=== PATIENT | male | born 1960 | race Caucasian/White ===

== ENCOUNTER → 2024-01-03 15:08 | Outpatient (REF) | payer OTHER, SELFPAY | LOC: HWRAD 15:08 | PROVIDERS: ATTENDING PHYSICIAN Transplant Surgery; FAMILY PHYSICIAN Nurse Practitioner | DX: Z94.4 Liver transplant status (principal) | CPT/HCPCS: 74176 ==

== ENCOUNTER → 2024-06-09 17:41 | Outpatient (REF) | payer OTHER, SELFPAY | LOC: MRI 17:41 | PROVIDERS: ATTENDING PHYSICIAN Transplant Surgery; FAMILY PHYSICIAN Nurse Practitioner | DX: Z94.4 Liver transplant status (principal) | CPT/HCPCS: 74183; A9581 ==

== ENCOUNTER 2024-07-13 12:30 | Emergency (ER) | payer OTHER, SELFPAY ==
[2024-07-13 12:32] VITALS: BP 162/74
--- NOTE | 2024-07-13 12:37 | ED.GENMED ---
ED Provider Triage
<Ralf Phillip PA-C - Last Filed: 07/13/24 12:43>
-
Patient seen by provider in Triage?: Seen in Triage
63-year-old male presents complaining severe low back pain that radiates into the bilateral upper buttocks. This started yesterday after lifting a heavy toolbox. He is ambulatory. He denies any bowel or bladder dysfunction. He had a liver
transplant several months ago. He was seen by the family doctor and sent here for further evaluation.
Patient is able to walk. X-rays of lumbar spine pending.
History of Present Illness
<Ralf Phillip PA-C - Last Filed: 07/13/24 12:43>
General
Chief Complaint: Back Pain
Time Seen by Provider: 07/13/24 14:42
<Angelica Navarro PA-C - Last Filed: 07/13/24 19:41>
General
Source: patient and spouse
Exam Limitations: none
Nursing documentation reviewed up to this point in time: agreed with
History of Present Illness
History of Present Illness:
63-year-old male presenting to the emergency department for evaluation of lower back pain radiating into his buttocks. Patient states he was lifting something heavy yesterday afternoon when he heard a 'clap.' Pain located in lower back worse with
movement. Patient endorses a numbness sensation in his buttocks and a weakness in his lower legs that has been progressing since incident yesterday. Patient denies any fevers, chills, scrotal/perianal anesthesia, bladder/bowel incontinence,
numbness/tingling in lower extremities. Patient has been ambulating.
Patient was seen by his primary care provider today and given subjective weakness and numbness in his buttocks was sent to the emergency department to rule out cauda equina.
Patient does report past history of back injury greater than 30 years prior.
Patient did have liver transplant in January 2024.
Past History
<Ralf Phillip PA-C - Last Filed: 07/13/24 12:43>
Past History
ED Past Medical History: None
ED Past Surgical History: None
Patient has exhibited threatening behavior?: No
PSI?: No
Review of Systems
<Angelica Navarro PA-C - Last Filed: 07/13/24 19:41>
Review of Systems
Allergies reviewed?: Yes
All Other Systems: ROS reviewed and negative except as documented in HPI and ROS
Phy Exam
<Angelica Navarro PA-C - Last Filed: 07/13/24 19:41>
Physical Exam
Physical Exam:
Vitals: Hypertensive, otherwise vital signs stable. Afebrile
General: Patient is well appearing, no acute distress
Skin: Warm and dry, no rashes or lesions
Head: Normocephalic, atraumatic
Eyes: Sclera nonicteric. EOMs intact. No nystagmus.
Throat: Protecting airway
Neck: Normal ROM, no cervical spine tenderness, no meningismus
Cardiac: Regular rate and rhythm, no murmurs.
Pulm: Normal respiratory effort, no wheezes, rales, rhonchi heard on exam.
Abdomen: No abdominal tenderness.
Back: Reproducible midline spinal tenderness near L2/L3 level. No overlying erythema, rash, ecchymoses. No CVA tenderness. Negative straight leg raise bilaterally.
Extremities: No evidence of cyanosis or edema. Great distal pulses in bilateral upper and lower extremities.
Neuro: AAOx3. CN II-XII intact. Objective strength 5 out of 5 in upper and lower extremities. Excellent sensation in bilateral lower extremities
Psychiatric: Normal affect.
Course
<Ralf Phillip PA-C - Last Filed: 07/13/24 12:43>
Orders/Labs/Results
Orders:
Orders
07/13/24 12:34
Lumbar Spine Complete, 4 View [CR Lumbar Spine Comp Min 4 Vw*] Urgent
Comment:
Reason For Exam: pain
07/13/24 15:35
Acetaminophen [Tylenol] 650 mg PO NOW STA
Lidocaine [Lidocaine 4% Patch] 1 patch TOPICAL NOW STA
Apply Lidocaine patch(s) to:: lower back
07/13/24 15:40
MR Lumbar Without Contrast Urgent
Comment:
Reason For Exam: Consider cauda equina
Recent pill cam endoscopy?: No
07/13/24 18:53
Lidocaine [Lidocaine 4% Patch] 1 patch TOPICAL NOW STA
Apply Lidocaine patch(s) to:: Lower back
Oxycodone [Roxicodone] 5 mg PO NOW STA
Vital Signs
Initial and Last Documented VS:
Initial Vital Signs
Temp Pulse Resp BP Pulse Ox
98.8 F 80 18 162/74 100
07/13/24 12:32 07/13/24 12:32 07/13/24 12:32 07/13/24 12:32 07/13/24 12:32
Last Documented Vital Signs
Temp Pulse Resp BP Pulse Ox
98.8 F 68 17 116/72 100
07/13/24 12:32 07/13/24 16:45 07/13/24 16:45 07/13/24 16:00 07/13/24 16:45
<Angelica Navarro PA-C - Last Filed: 07/13/24 19:41>
Orders/Labs/Results
Orders:
Orders
07/13/24 12:34
Lumbar Spine Complete, 4 View [CR Lumbar Spine Comp Min 4 Vw*] Urgent
Comment:
Reason For Exam: pain
07/13/24 15:35
Acetaminophen [Tylenol] 650 mg PO NOW STA
Lidocaine [Lidocaine 4% Patch] 1 patch TOPICAL NOW STA
Apply Lidocaine patch(s) to:: lower back
07/13/24 15:40
MR Lumbar Without Contrast Urgent
Comment:
Reason For Exam: Consider cauda equina
Recent pill cam endoscopy?: No
07/13/24 18:53
Lidocaine [Lidocaine 4% Patch] 1 patch TOPICAL NOW STA
Apply Lidocaine patch(s) to:: Lower back
Oxycodone [Roxicodone] 5 mg PO NOW STA
Vital Signs
Initial and Last Documented VS:
Initial Vital Signs
Temp Pulse Resp BP Pulse Ox
98.8 F 80 18 162/74 100
07/13/24 12:32 07/13/24 12:32 07/13/24 12:32 07/13/24 12:32 07/13/24 12:32
Last Documented Vital Signs
Temp Pulse Resp BP Pulse Ox
98.8 F 68 17 116/72 100
07/13/24 12:32 07/13/24 16:45 07/13/24 16:45 07/13/24 16:00 07/13/24 16:45
<Mindy Messina MD - Last Filed: 07/13/24 15:23>
Orders/Labs/Results
Orders:
Orders
07/13/24 12:34
Lumbar Spine Complete, 4 View [CR Lumbar Spine Comp Min 4 Vw*] Urgent
Comment:
Reason For Exam: pain
07/13/24 15:35
Acetaminophen [Tylenol] 650 mg PO NOW STA
Lidocaine [Lidocaine 4% Patch] 1 patch TOPICAL NOW STA
Apply Lidocaine patch(s) to:: lower back
07/13/24 15:40
MR Lumbar Without Contrast Urgent
Comment:
Reason For Exam: Consider cauda equina
Recent pill cam endoscopy?: No
07/13/24 18:53
Lidocaine [Lidocaine 4% Patch] 1 patch TOPICAL NOW STA
Apply Lidocaine patch(s) to:: Lower back
Oxycodone [Roxicodone] 5 mg PO NOW STA
Vital Signs
Initial and Last Documented VS:
Initial Vital Signs
Temp Pulse Resp BP Pulse Ox
98.8 F 80 18 162/74 100
07/13/24 12:32 07/13/24 12:32 07/13/24 12:32 07/13/24 12:32 07/13/24 12:32
Last Documented Vital Signs
Temp Pulse Resp BP Pulse Ox
98.8 F 68 17 116/72 100
07/13/24 12:32 07/13/24 16:45 07/13/24 16:45 07/13/24 16:00 07/13/24 16:45
<Angelica Navarro PA-C - Last Filed: 07/13/24 19:41>
MDM/Problems Addressed
Differential Diagnosis Includes:
Not limited to: Muscle strain, muscle spasm, spinal stenosis, herniated disc, cauda equina, fracture, etc.
MDM/Problems Addressed:
62-year-old male presenting with acute onset low back pain after lifting heavy object yesterday. Subjective weakness and numbness of buttocks�seen by PCP and referred to ER to rule out cauda equina. Patient has perianal or scrotal anesthesia. No
bowel/bladder incontinence. No numbness/tingling lower legs vital stable. Exam as above. Patient in mild distress due to pain, otherwise well appearing. Patient with point tenderness to lower lumbar spine. No focal neurologic deficits noted
patient has excellent sensation in lower extremities. On exam�patient does have 5 out of 5 strength in upper and lower extremities. A lumbar spine x-ray was obtained in triage shows no acute abnormalities. Low suspicion for cauda equina although
given history of lower extremity weakness and buttock numbness�will obtain MRI to rule out. Patient with liver transplant . Did speak with transfer and pumphouse operator chief who recommended Tylenol for pain management as long as less than 2 g/day.
Patient given Tylenol, lidocaine patch. MRI pending.
Update: Patient does report mild improvement following Tylenol, lidocaine. MRI report pending.
Update: MRI report reviewed. No evidence of spinal cord compression. There is an acute L2 inferior endplate fracture. Discussed with neurosurgeon, Dr. Dubose. Pain well-controlled in ER patient will be discharged with outpatient follow-up.
Return precautions discussed with patient. Patient comfortable discharge. patient seen with attending physician.
Chronic conditions affecting care:
N/A
Acute Exacerbation and/or Progression of Chronic Illness:
N/A
<Angelica Navarro PA-C - Last Filed: 07/13/24 19:41>
*Radiology
Radiology exam reviewed: preliminary read by ED provider and radiology read reviewed
*Pulse Oximetry
Patient hypoxic: no
*EKG
Interpreted by ED Provider?: NA
*Corporate Executive Chef Interpretation
Rate: Corporate Executive Chef- N/A
*Critical Care Note
Total Time (30-74mins, 75-104mins- exclusive of procedures): Not Applicable
<Angelica Navarro PA-C - Last Filed: 07/13/24 19:41>
Patient Management
Discussion with other providers: Transit Police Officer (Neurosurgery - Dr. Dubose)
ED Attending Note
<Ralf Phillip PA-C - Last Filed: 07/13/24 12:43>
-
Portions of this chart may have been created with voice recognition software.� Occasional wrong word or��sound alike� substitutions may have occurred due to the inherent limitations of voice recognition software.
<Mindy Messina MD - Last Filed: 07/13/24 15:23>
ED Attending Note
Patient seen and examined by attending physician: Yes
I performed the substantive portion of visit, reviewed & personally made and approve the management plan that is documented in note by myself or GARRETT.: Yes
ED Attending Note:
63-year-old male who says he was lifting up something very heavy yesterday and developed the abrupt onset of pain in the lower back that radiates down to his buttocks associated with numbness. This does not extend beyond his buttocks. He
subjectively feels like his legs are weak and shaky but he is still able to ambulate. He denies incontinence, retention, perianal/scrotal anesthesia, fever, chills, chest pain, shortness of breath, abdominal pain, or other complaints. Given
patient's complaint of numbness and weakness was referred to the emergency department to rule out cauda equina. On exam, patient is overall well-appearing, abdomen soft and nontender. Subjective motor strength intact, 2+ patellar reflexes. No
tenderness to palpation of midline of back.
Discharge Plan
Departure
Patient Disposition: Home (Routine Discharge)
Date of Disposition: 07/13/24
Time of Disposition: 18:45
Patient with high blood pressure during this ER visit?: No
Condition: Good
Covid-19: Not Applicable
Discharge Problem:
Fracture of L2 vertebra
Instructions: Low Back Pain (DC)
Prescriptions:
New
oxycodone 5 mg tablet
5 mg PO Q6H PRN (Reason: Pain) Qty: 10 0RF
No Action
ascorbic acid (vitamin C) [Vitamin C] 500 MG tablet
500 mg PO DAILY
B-complex with vitamin C 1 CAPLET tablet
1 cap PO DAILY
cholecalciferol (vitamin D3) 2,000 UNITS tablet
2,000 units PO DAILY
vitamin E (dl, acetate) 400 UNITS capsule
400 units PO DAILY
multivitamin with folic acid [Tab-A-Nichole] 1 TABLET tablet
1 tab PO DAILY
furosemide 20 MG tablet
20 mg PO DAILY 30 Days Qty: 30 3RF
spironolactone 50 MG tablet
50 mg PO DAILY 30 Days Qty: 30 3RF
Creon 36,000-114,000- 180,000 unit capsule,delayed release(DR/EC)
3 cap PO MEALS
Creon 36,000-114,000- 180,000 unit capsule,delayed release(DR/EC)
3 cap PO DAILY PRN (Reason: snack)
Referrals:
Thierry Dubose DO [Active] - Call in 1-3 days for appt
Amirah Bush CRNP [Family Provider] -
Stand Alone Forms: Return to Work
Activity Restrictions/Additional Instructions:
RETURN TO THE EMERGENCY DEPARTMENT WITH ANY NUMBNESS/TINGLING IN LOWER EXTREMITIES, WEAKNESS IN LOWER EXTREMITIES, BOWEL/BLADDER INCONTINENCE, INTRACTABLE PAIN, WORSENING IN CURRENT SYMPTOMS, OR ANY OTHER CONCERNS
-As discussed�your MRI showed a fracture of the inferior endplate of L2. You should take Tylenol at home as needed for pain. You should not exceed more than 2000 mg/day. You can apply lidocaine patches at home as needed. A prescription for
oxycodone has been sent to the pharmacy you can take for severe pain. This may cause drowsiness not take prior to driving. In addition�this may cause constipation you should take a stool softener/MiraLAX.
-Discussed with your donor relations coordinator�you should avoid medications which includes ibuprofen, Advil, Motrin, Aleve, naproxen, etc.
-Follow-up with Dr. Dubose for further evaluation/management. The contact information has been provided for you above.
Monitor your symptoms closely return to the emergency department with any/new symptoms
Interventions
Interventions:
*Risk Screen - Suicide Last Done: 07/13/24 12:32
*General Assessment Last Done: 07/13/24 12:32
*Neglect/Abuse Screening Last Done: 07/13/24 12:32
ED- Fall Risk Assessment Last Done: 07/13/24 13:50
*ED COVID-19 Vaccine History Last Done: 07/13/24 12:32
ED-Musculoskeletal Assessment Last Done: 07/13/24 13:49
Discharge Date and Time
Print Language: NEPALI
[2024-07-13 13:34] VITALS: BP 156/70
[2024-07-13 13:42] VITALS: BMI 28.2
[2024-07-13 14:00] VITALS: BP 139/63
--- NOTE | 2024-07-13 15:08 | EDRN ---
Dr. Ivy cleared pt as not risk of suicide and arranging outpt mental health care for pt per crisis. Crisis stated pt can go to their area to await the completion of her paperwork.
[2024-07-13 15:13] VITALS: BP 146/70
--- NOTE | 2024-07-13 15:20 | EDRN ---
Dr. Messina in room w/ pt at this time. Pt looking for number of physician at [facility] where he had liver transplant to find out what meds pt may take for his pain. Pt is now at 8/10 pain.
[2024-07-13] MEDS: LIDOCAINE 4% PATCH 1 PATCH TOPICAL ×2 (15:40→19:34)
[2024-07-13] MEDS: TYLENOL 650 MG PO (15:41)
--- NOTE | 2024-07-13 15:46 | EDRN ---
Pt awaiting MRI as ordered at this time. Pt will inform this RN if medication taken helps his pain.
[2024-07-13 16:00] VITALS: BP 116/72
[2024-07-13] MEDS: ROXICODONE 5 MG PO (19:34)
[2024-07-13 19:47] VITALS: BP 138/71
== END 2024-07-13 20:05 | disposition home or self-care (01) ==
LOC: EMR 12:30
PROVIDERS: EMERGENCY PHYSICIAN Emergency Medicine; FAMILY PHYSICIAN Nurse Practitioner
DX: S32.029A Unspecified fracture of second lumbar vertebra, initial encounter for closed fracture (principal); X50.0XXA Overexertion from strenuous movement or load, initial encounter
CPT/HCPCS: 99283; 72110; 72148

== ENCOUNTER → 2024-08-24 10:46 | Outpatient (REF) | payer OTHER, SELFPAY | LOC: HWRAD 10:46 | PROVIDERS: ATTENDING PHYSICIAN Nurse Practitioner Family | DX: S31.030A Puncture wound without foreign body of lower back and pelvis without penetration into retroperitoneum, initial encounter (principal) | CPT/HCPCS: 72100 ==

== ENCOUNTER → 2024-10-01 18:21 | Outpatient (REF) | payer OTHER, SELFPAY | LOC: MRI 3T 18:21 | PROVIDERS: ATTENDING PHYSICIAN Internal Medicine Gastroenterology; FAMILY PHYSICIAN Nurse Practitioner | DX: Z94.4 Liver transplant status (principal) | CPT/HCPCS: 74183; A9581 ==

== ENCOUNTER 2024-10-31 00:41 | Emergency (ER) | payer OTHER, SELFPAY ==
[2024-10-31] VITALS (7 sets, daily range): BP systolic 131–142; BP diastolic 69–79; BMI 28.9
[2024-10-31 01:43] LABS: Urine Albumin Negative (Neg - Trace); Urine Bilirubin Negative (Negative); Urine Character Clear (Clear); Urine Color Yellow; Urine Glucose Negative (Negative); Urine Ketone Negative (Negative); Urine Leukocyte Negative (Negative); Urine Nitrite Negative (Negative); Urine Occult Blood 1+ (Negative); Urine Specific Gravity 1.025 (<1.030); Urine Urobilinogen Negative (Neg - 1+)
[2024-10-31 01:46] LABS: % Basophils 0.4 % (0-2); % Eosinophils 1.2 % (0-6); % Immature Granulocytes 0.2 % (0-0.5); % Monocytes 8.7 % (1.7-9.3); % Neutrophils 75.5 % (42.2-75.2); Absolute Eosinophils 0.1 10^3/uL (0-0.7); Absolute Lymphocytes 0.7 10^3/uL (1.2-3.4); Absolute Monocytes 0.4 10^3/uL (0.1-0.6); Absolute Neutrophils 3.7 10^3/uL (1.4-6.5); Hemoglobin 11.2 g/dL (13.0-18.0); Mean Corp Hgb Conc. 32.9 g/dL (33.0-37.0); Mean Corpuscular Hgb 27.7 pg (27.0-31.0); Mean Corpuscular Volume 84.2 fL (80.0-94.0); Mean Platelet Volume 9.1 fL (7.4-10.4); Nucleated Red Blood Cells % 0 % (-); Platelet Count 96 10^3/uL (130-400); Red Blood Cell Count 4.04 10^6/uL (4.70-6.10); Red Cell Dist. Width 14.6 % (11.5-14.5); White Blood Cell Count 4.9 10^3/uL (4.8-10.8)
[2024-10-31 02:04] LABS: ALT (SGPT) 13 U/L (0-50); AST (SGOT) 19 U/L (17-59); Alkaline Phosphatase 134 U/L (38-126); Blood Urea Nitrogen 20 mg/dl (9-20); Calcium 8.3 mg/dl (8.4-10.2); Carbon Dioxide 22 mmol/L (22-30); Chloride 109 mmol/L (98-107); Estimated Creatinine Clearance 98 ml/min; Glucose 90 mg/dl (70-99); Lipase 68 U/L (23-300); Potassium 4.9 mmol/L (3.5-5.1); Sodium 140 mmol/L (135-145); Total Bilirubin 0.9 mg/dl (0.2-1.3); Total Protein 6.9 g/dl (6.3-8.2); eGFR > 60.00
[2024-10-31 02:15] LABS: Urine Squamous Cell >30 /LPF (Few)
[2024-10-31 02:16] LABS: Urine Bacteria Few (Negative); Urine White Cell 0-2 /HPF (0-5)
--- NOTE | 2024-10-31 05:24 | EDRN ---
Patient asking about when he will be seen did update him on delays and his labs and he does understand, will continue to monitor
--- NOTE | 2024-10-31 06:47 | ED.GENMED ---
History of Present Illness
General
Chief Complaint: Abdominal Pain
Time Seen by Provider: 10/31/24 06:47
History of Present Illness
History of Present Illness:
TIME OF INITIAL ENCOUNTER: 6:50 AM
HPI: Patient presents with left flank pain ongoing since yesterday. The pain started out as bilateral lower abdominal discomfort but now is localized to the left midaxillary line of the lower abdomen. This is associated with nausea. He states he
has a history of life-threatening kidney stone and was bacteremic in the past. He has had no fevers. He states that the pain was at its worst an 8 out of 10 and currently 5 out of 10. Pain worsens with certain movement changes.
EXAM:
GENERAL: Well appearing in no distress
HEENT: Moist oral mucosa
CARDIOVASCULAR: No murmurs, normal heart rate, regular rhythm, No chest wall tenderness
PULMONARY: No respiratory distress, breath sounds are clear and equal
ABDOMEN: Soft with no peritoneal signs, no tenderness, however there is focal tenderness in the mid axillary line on the left side of the abdomen and a relatively small area
NEUROLOGIC: Excellent strength all extremities, no coordination deficits
PSYCHIATRIC: Appropriate mental status, normal insight and judgement
EXTREMITIES: Nontender, no edema, moves all extremities equally
SKIN: No rash, no lesions, but appears somewhat pale
NUMBER AND COMPLEXITY OF PROBLEMS ADDRESSED AT THE ENCOUNTER
� Chronic conditions affecting care: Cirrhosis status post liver transplant January 2024, has had kidney stones, thrombocytopenia
� Acute Exacerbation and/or Progression of Chronic Illness: This is an acute problem
� Differential Diagnosis includes: Ureteral stone/colic, UTI/pyelonephritis, oblique muscle strain, diverticulitis
AMOUNT AND/OR COMPLEXITY OF DATA TO BE REVIEWED AND ANALYZED
� I performed an independent evaluation of and my interpretation is:
EKG:
CT: CT shows signs of acute diverticulitis at the mid descending colon
X-rays:
Laboratory Studies: White count is normal, platelets are 96, urinalysis does not suggest infection but 1+ blood noted
Other:
� Review of other/old records: I reviewed records, the patient has been here in the past and has also had episodes of confusion
� Clinical information was obtained by an independent historian: None needed
� Prescriptions/Medications Considered but not given:
� Further testing considered but not performed:
RISK OF COMPLICATIONS AND/OR MORBIDITY OR MORTALITY OF PATIENT MANAGEMENT
� Social determinants of health affecting care: Lives at home
� Discussion with other providers:
� Escalation of care including admission/observation vs risk of discharge considered: Urinalysis does not show any signs of infection but does show 1+ blood. Will obtain CT imaging. Platelets are chronically low but improved.
White count is currently normal and higher than baseline. Give Toradol for pain�he has normal renal function.
ANY OTHER UPDATES:
8:20 AM: I reviewed CT report�patient has evidence of acute diverticulitis of the descending colon. Blood work and urinalysis relatively unremarkable. The patient appears comfortable on reassessment. He is also to follow-up with his GI doctor,
Dr. Mirza.
Past History
Past History
ED Past Medical History: None
ED Past Surgical History: None
Patient has exhibited threatening behavior?: No
PSI?: No
Phy Exam
Physical Exam
Physical Exam:
See HPI
Course
Orders/Labs/Results
Orders:
Orders
10/31/24 01:05
IV Insert/Care/Rem.- Treatment PRN
10/31/24 01:31
Complete Blood Count/With Diff Urgent
Comprehensive Metabolic Panel Urgent
Lipase Urgent
Urinalysis Reflex To Culture Urgent
Date Specimen was Collected: 10/31/24
Time Specimen was Collected: 01:05
Urine Microscopic Reflex Cult Urgent
10/31/24 07:01
Ketorolac [Toradol] 15 mg IV NOW STA
10/31/24 07:04
CT Abd/pel Without Iv Or Oral Urgent
Comment:
Reason For Exam: pain L abdominal midaxillary line / L flank
10/31/24 08:27
Amoxicillin 875 mg/Clav 125 mg [Augmentin 875 mg/125 mg] 1 tablet PO NOW STA
Abnormal Lab Results
10/31/24
01:31
RBC 4.04 L 10^6/uL
(4.70-6.10)
Hgb 11.2 L g/dL
(13.0-18.0)
Hct 34.0 L %
(39.0-52.0)
MCHC 32.9 L g/dL
(33.0-37.0)
RDW 14.6 H %
(11.5-14.5)
Plt Count 96 L 10^3/uL
(130-400)
Absolute Lymphs (auto) 0.7 L 10^3/uL
(1.2-3.4)
Neutrophils % 75.5 H %
(42.2-75.2)
Lymphocytes % 14.0 L %
(20.5-51.1)
Chloride 109 H mmol/L
(98-107)
Calcium 8.3 L mg/dl
(8.4-10.2)
Alkaline Phosphatase 134 H U/L
(38-126)
Ur Occult Blood Reflex 1+ A
(Negative)
Urine RBC 7-10 A /HPF
(0-2)
Urine Bacteria (Reflex) Few A
(Negative)
10/31/24 01:31
10/31/24 01:31
Vital Signs
Initial and Last Documented VS:
Initial Vital Signs
Temp Pulse Resp BP Pulse Ox
36.9 C 74 20 133/69 99
10/31/24 00:58 10/31/24 00:58 10/31/24 00:58 10/31/24 00:58 10/31/24 00:58
Last Documented Vital Signs
Temp Pulse Resp BP Pulse Ox
36.9 C 62 18 142/79 99
10/31/24 00:58 10/31/24 08:24 10/31/24 07:29 10/31/24 07:29 10/31/24 07:29
*Critical Care Note
Total Time (30-74mins, 75-104mins- exclusive of procedures): Not Applicable
ED Attending Note
-
Portions of this chart may have been created with voice recognition software.� Occasional wrong word or��sound alike� substitutions may have occurred due to the inherent limitations of voice recognition software.
Discharge Plan
Departure
Patient Disposition: Home (Routine Discharge)
Date of Disposition: 10/31/24
Time of Disposition: 08:28
Patient with high blood pressure during this ER visit?: Yes
Discharge Problem:
Diverticulitis
Instructions: Diverticulitis (DC), BLOOD PRESSURE
Prescriptions:
New
amoxicillin-pot clavulanate 875-125 mg tablet
1 tab PO BID Qty: 14 0RF
No Action
ascorbic acid (vitamin C) [Vitamin C] 500 MG tablet
500 mg PO DAILY
B-complex with vitamin C 1 CAPLET tablet
1 cap PO DAILY
cholecalciferol (vitamin D3) 2,000 UNITS tablet
2,000 units PO DAILY
vitamin E (dl, acetate) 400 UNITS capsule
400 units PO DAILY
multivitamin with folic acid [Tab-A-Nichole] 1 TABLET tablet
1 tab PO DAILY
furosemide 20 MG tablet
20 mg PO DAILY 30 Days Qty: 30 3RF
spironolactone 50 MG tablet
50 mg PO DAILY 30 Days Qty: 30 3RF
Creon 36,000-114,000- 180,000 unit capsule,delayed release(DR/EC)
3 cap PO MEALS
Creon 36,000-114,000- 180,000 unit capsule,delayed release(DR/EC)
3 cap PO DAILY PRN (Reason: snack)
oxycodone 5 mg tablet
5 mg PO Q6H PRN (Reason: Pain) Qty: 10 0RF
Referrals:
Angy iMrza MD [Active] - Follow up in 10 days
Amirah Bush CRNP [Family Provider] -
Activity Restrictions/Additional Instructions:
The CAT scan shows acute diverticulitis at the mid descending colon. Your white blood cell count is normal. Your count is improved to 96. Your kidney function is normal. Your liver numbers are normal. Urinalysis does not show any definite signs
of infection. I am placing you on Augmentin. I also recommend that you follow-up with Dr. Mirza for reassessment.
Interventions
Interventions:
*Risk Screen - Suicide Last Done: 10/31/24 00:58
*General Assessment Last Done: 10/31/24 00:58
*Neglect/Abuse Screening Last Done: 10/31/24 00:58
ED- Fall Risk Assessment Last Done: 10/31/24 00:58
*ED COVID-19 Vaccine History Last Done: 10/31/24 00:58
SF-Tstist-Pbqebmorwz Assessment Last Done: 10/31/24 01:56
Discharge Date and Time
Print Language: [id number]
[2024-10-31] MEDS: TORADOL 15 MG IV (07:22)
[2024-10-31] MEDS: AUGMENTIN 875 MG/125 MG 1 TABLET PO (09:18)
== END 2024-10-31 09:50 | disposition home or self-care (01) ==
LOC: EMR 00:41
PROVIDERS: Emergency Medicine; EMERGENCY PHYSICIAN Emergency Medicine; FAMILY PHYSICIAN Nurse Practitioner
DX: K57.32 Diverticulitis of large intestine without perforation or abscess without bleeding (principal); Z87.442 Personal history of urinary calculi; Z94.4 Liver transplant status
CPT/HCPCS: 99284; 96374; 74176; 80053; 81003; 81015; 83690; 85025

== ENCOUNTER → 2025-02-09 15:35 | Outpatient (REF) | payer OTHER, SELFPAY | LOC: MRI 3T 15:35 | PROVIDERS: ATTENDING PHYSICIAN Internal Medicine Gastroenterology | DX: Z94.4 Liver transplant status (principal) | CPT/HCPCS: 74183; A9581 ==

== ENCOUNTER → 2025-06-25 15:49 | Outpatient (REF) | payer OTHER, SELFPAY | LOC: MRI 3T 15:49 | PROVIDERS: ATTENDING PHYSICIAN Internal Medicine Gastroenterology | DX: Z94.4 Liver transplant status (principal) | CPT/HCPCS: 74183; A9581 ==